=== PATIENT | female | born 1975 | race African-American/Black ===

== ENCOUNTER 2017-04-04 11:47 | Outpatient (CLI) | payer BC ==
--- NOTE | 2017-04-04 15:21 | RAD ---
ONE VIEW PELVIS: History: Left hip pain. Comparison: None. FINDINGS: Sacroiliac joints are patent and symmetric. Sacral ala are intact. Bony pelvis is intact. Contour of right and left femoral head are maintained on single projection. Hip joint spaces are symmetric and preserved. IMPRESSION: Unremarkable AP pelvic radiograph. POS: [facility]
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
== END 2017-04-04 11:48 | disposition home or self-care (01) ==
LOC: SCSRAD 11:47
PROVIDERS: ATTEND Family Medicine
DX: M25.552 Pain in left hip (principal); M89.8X1 Other specified disorders of bone, shoulder
CPT/HCPCS: 72170